=== PATIENT | female | born 2000 | race Caucasian/White ===

== ENCOUNTER → 2022-01-30 19:15 | Observation (INO) ==
[2022-01-30 19:43] LABS: Candida DNA Not Detected (Not Detect); Gardnerella DNA Not Detected (Not Detect); Trichomonas DNA Not Detected (Not Detect)
== END | disposition home or self-care (01) ==
LOC: 1NENULAB
PROVIDERS: ADMIT Advanced Practice Midwife; ATTEND Advanced Practice Midwife

== ENCOUNTER 2022-02-14 07:29 | Inpatient (IN) ==
[2022-02-14] MEDS ORDERED: EPHEDrine 50 MG/ML VIAL IVP PRN (08:43)
[2022-02-14] MEDS ORDERED: Epidural Premix (fent/bupiv) 110 ML EP SCH (08:45)
[2022-02-14] MEDS ORDERED: miSOPROStoL 25 MCG TABLET PO PRN (09:15)
[2022-02-14] MEDS ORDERED: Famotidine 20 MG/2 ML VIAL IVP PRN (09:15)
[2022-02-14] MEDS ORDERED: Metoclopramide 10 MG/2 ML VIAL IVP PRN (09:15)
[2022-02-14] MEDS ORDERED: Naloxone 0.4 MG/ML INJ IVP PRN (09:15)
[2022-02-14] MEDS ORDERED: *HR* Nalbuphine 10 MG/ML AMPUL IV PRN (09:15)
[2022-02-14 09:56] LABS: Basophils % 0.2 %; Eosinophils # 0.1 K/mcL (0.0-0.6); Eosinophils % 0.9 %; Hematocrit 35.7 % (35.3-44.9); Immature Granulocytes % 0.4 % (0-4); Lymphocytes # 1.7 K/mcL (0.6-4.6); Lymphocytes % 12.3 %; Mean Corpuscular HGB Conc 33.6 g/dL (31.6-35.5); Mean Corpuscular Hemoglobin 31.3 pg (28.0-33.3); Mean Corpuscular Volume 93.2 fL (83.0-100.0); Mean Platelet Volume 11.9 fL (9.4-12.4); Monocytes # 1.1 K/mcL (0.0-1.3); Monocytes % 7.8 %; Neutrophils # 10.8 K/mcL (1.6-8.9); Platelet Count 254 K/mcL (140-400); Red Blood Count 3.83 M/mcL (3.82-4.97); Red Cell Distribution Width 12.6 % (11.5-14.5); Segmented Neutrophils % 78.4 %; White Blood Count 13.9 K/mcL (4.3-11.1)
[2022-02-14 10:26] LABS: Influenza A PCR Negative (Negative); Influenza B PCR Negative (Negative); Resp. Syncytial Virus PCR Negative (Negative)
[2022-02-14 10:45] LABS: SARS-CoV-2 by PCR (In House) Negative (Negative)
[2022-02-14 10:49] LABS: Amphetamine Screen,Urine Negative ng/mL (Cutoff=1000); Barbiturate Screen,Urine Negative ng/mL (Cutoff=200); Benzodiazepines Screen,Urine Negative ng/mL (Cutoff=200); Cannabinoid Screen,Urine Negative ng/mL (Cutoff = 50); Cocaine Screen,Urine Negative ng/mL (Cutoff= 300); Opiate Screen,Urine Negative ng/mL (Cutoff=300); Phencyclidine Screen,Urine Negative ng/mL (Cutoff=25)
[2022-02-14] MEDS ORDERED: Oxytocin 30 UNIT/503 ML BAG IVC SCH (14:45)
[2022-02-14] MEDS: Ringers Solution, Lactated 1,000 ML IVC SCH (16:06)
[2022-02-15] MEDS ORDERED: Ondansetron 4 MG/2 ML VIAL ONE (03:32)
[2022-02-15] MEDS ORDERED: Ondansetron 4 MG/2 ML VIAL IVP PRN (03:40)
[2022-02-15] MEDS: Ringers Solution, Lactated 1,000 ML IVC SCH (04:17)
[2022-02-15] MEDS ORDERED: Ibuprofen 600 MG TABLET PO ONE (06:23)
[2022-02-15] MEDS ORDERED: Ondansetron ODT 4 MG TAB.RAPDIS SL PRN (08:53)
[2022-02-15] MEDS ORDERED: Lanolin 7 G OINT...G. TP PRN (08:53)
[2022-02-15] MEDS ORDERED: Benzocaine/Menthol 56 GM AEROSOL SPRAY TP PRN (08:53)
[2022-02-15] MEDS ORDERED: Oxytocin 30 UNIT/503 ML BAG IVC SCH (08:53)
[2022-02-15] MEDS: Ibuprofen 600 MG TABLET PO SCH ×3 (09:08→21:10)
[2022-02-15] MEDS: Prenatal Vit/FA 1 EACH TABLET PO SCH (09:08)
[2022-02-15] MEDS: Acetaminophen 325 MG TABLET PO SCH ×3 (09:09→21:10)
[2022-02-16] MEDS: Ibuprofen 600 MG TABLET PO SCH ×2 (04:51→11:06)
[2022-02-16] MEDS: Acetaminophen 325 MG TABLET PO SCH ×2 (04:51→11:06)
[2022-02-16 05:24] VITALS: PULSE 97
[2022-02-16 05:26] VITALS: O2SAT 99
[2022-02-16 07:19] VITALS: BP 125/78; TEMP 97.8
[2022-02-16] MEDS: Prenatal Vit/FA 1 EACH TABLET PO SCH (08:58)
== END 2022-02-16 16:54 | disposition home or self-care (01) | DRG 807 ==
LOC: 1NENULAB 07:29 → 1NENUOBS 02-15 08:54
PROVIDERS: ADMIT Advanced Practice Midwife; ATTEND Advanced Practice Midwife